=== PATIENT | female | born 1945 | race Two or more races ===

== ENCOUNTER 2020-05-26 08:40 | Emergency (ER) | payer MEDICAID, OTHER ==
[~2020-05-26] VITALS: Ht 152.4 cm; Wt 68.0 kg
[2020-05-26 09:20] LABS: Urine Bacteria MANY /hpf (None Seen); Urine Blood 3+ /uL (Negative); Urine Specific Gravity 1.017 (1.001-1.035); Urine WBC 3384 /hpf (0 - 5); Urine WBC Clumps PRESENT /hpf (None Seen)
[2020-05-26 09:39] LABS: Basophils # (auto) 0 10 ^3/uL (0-0.2); Basophils % (auto) 0.3 % (0.0-2.0); Eosinophils # (auto) 0 10 ^3/uL (0-0.8); Eosinophils % (auto) 0.4 % (0.0-7.0); Hematocrit 37.3 % (36.0-46.0); Hemoglobin 12.3 g/dL (12.2-16.2); Lymphocytes # (auto) 0.5 10 ^3/uL (0.4-5.4); Lymphocytes % (auto) 8.9 % (10.0-50.0); Mean Corpuscular Hgb Conc. 32.9 g/dL (32.0-36.0); Mean Corpuscular Volume 88.3 fL (80.0-100.0); Monocytes # (auto) 0.4 10 ^3/uL (0-1.3); Monocytes % (auto) 7.4 % (0.0-12.0); Neutrophils # (auto) 4.9 10 ^3/uL (1.6-8.6); Platelet Count (auto) 69 10^3/uL (140-450); Red Blood Cells 4.22 10^6/uL (4.0-5.20); Red Cell Distribution Width 14.2 % (11.8-14.3)
[2020-05-26] MEDS ORDERED: SODIUM CHLORIDE 0.9% 500 ML IV ONE (09:45)
[2020-05-26] MEDS ORDERED: ACETAMINOPHEN 325 MG TAB PO ONE (09:45)
[2020-05-26] MEDS ORDERED: cefTRIAXone 1GM/50ML D5W 50 ML IV ONE (09:45)
[2020-05-26 10:01] LABS: BUN/Creatinine Ratio 19.1; Calcium 8.5 mg/dL (8.5-10.1); Potassium 4.2 mmol/L (3.5-5.1)
[2020-05-26 11:11] VITALS: BP 111/63
== END 2020-05-26 11:17 | disposition home or self-care (01) ==
LOC: ER 08:40
DX: N39.0 Urinary tract infection, site not specified (principal); E11.9 Type 2 diabetes mellitus without complications; I10 Essential (primary) hypertension; Z87.442 Personal history of urinary calculi
CPT/HCPCS: 36415; 71046; 80048; 81001; 82962; 85025; 87086; 87088; 87186; 96365; 99284; J0696; J7040